=== PATIENT | male | born 1995 | race Two or more races ===

== ENCOUNTER 2021-04-22 11:55 | Emergency (ER) | payer SELFPAY ==
[~2021-04-22] VITALS: Ht 157.5 cm; Wt 68.0 kg
[2021-04-22] MEDS ORDERED: TETRACAINE 0.5% OPHTH SOLUTION 4ML BOTTLE. OS ONE (13:00)
[2021-04-22] MEDS ORDERED: FLUORESCEIN OPHTH TEST STRIP. OS ONE (13:00)
--- NOTE | 2021-04-22 13:43 | PHYS DOC ---
Past Medical History Past Surgical History: No Surgical History Smoking Status: Never Smoker Alcohol Use: None General Adult EDM: Chief Complaint: EYE PROBLEMS HPI: HPI: Patient is a 26 year old male who presents with began having left eye redness on this past Friday then started to have some pain so yesterday on Friday he went to [facility] and saw an eye doctor and they gave him prednisone drops. He states that the eye is now more painful and blurry to the point where he cannot read on the eye and he cannot tell colors. He states he supposed to follow-up with eye doctor tomorrow again. He does not have any photophobia. Rates his pain 9 out of 10. Review of Systems: Review of Systems: Constitutional: Denies fever or chills. [] Eyes: + change in visual acuity. + Eye pain, + eye redness [] HENT: Denies nasal congestion or sore throat. [] Respiratory: Denies cough or shortness of breath. [] Cardiovascular: Denies chest pain or edema. [] GI: Denies abdominal pain, nausea, vomiting, bloody stools or diarrhea. [] : Denies dysuria. [] Musculoskeletal: Denies back pain or joint pain. [] Integument: Denies rash. [] Neurologic: Denies headache, focal weakness or sensory changes. [] Endocrine: Denies polyuria or polydipsia. [] Lymphatic: Denies swollen glands. [] Psychiatric: Denies depression or anxiety. [] Heart Score: C/O Chest Pain: No Risk Factors: Risk Factors: DM, Current or recent (<one month) smoker, HTN, HLP, family history of CAD, obesity. Risk Scores: Score 0 - 3: 2.5% MACE over next 6 weeks - Discharge Home Score 4 - 6: 20.3% MACE over next 6 weeks - Admit for Clinical Observation Score 7 - 10: 72.7% MACE over next 6 weeks - Early Invasive Strategies Current Medications: Current Medications Medications (Trade) Dose Ordered Sig/Nelida Start Time Stop Time Status Last Admin Dose Admin Fluorescein Sodium (Ful-Valerie) 1 strip 1X ONCE 04/22/21 13:00 04/22/21 13:01 DC 04/22/21 13:09 1 STRIP Tetracaine HCl (Tetracaine) 1 drop 1X ONCE 04/22/21 13:00 04/22/21 13:01 DC 04/22/21 13:09 1 DROP Allergies: Allergies: Allergies Coded Allergies Type Severity Reaction Last Updated Verified No Known Drug Allergies 04/22/21 No Physical Exam: PE: Constitutional: Well developed, well nourished, no acute distress, non-toxic appearance. [] HENT: Normocephalic, atraumatic, bilateral external ears normal, oropharynx moist, no oral exudates, nose normal. [] Eyes: Not PERRLA, EOMI, right conjunctiva normal and left reddened, no discharge. Swelling to the left eye. Left eye pupil fixed at a 4 and not jimena ctive. [] Neck: Normal range of motion, no tenderness, supple, no stridor. [] Cardiovascular:Heart rate regular rhythm, no murmur [] Lungs & Thorax: Bilateral breath sounds clear to auscultation [] Abdomen: Bowel sounds normal, soft, no tenderness, no masses, no pulsatile masses. [] Skin: Warm, dry, no erythema, no rash. [] Back: No tenderness, no CVA tenderness. [] Extremities: No tenderness, no cyanosis, no clubbing, ROM intact, no edema. [] Neurologic: Alert and oriented X 3, normal motor function, normal sensory function, no focal deficits noted. [] Psychologic: Affect normal, judgement normal, mood normal. [] Current Patient Data: Vital Signs: Vital Signs Date Time Temp Pulse Resp B/P (MAP) Pulse Ox O2 Delivery O2 Flow Rate FiO2 04/22/21 12:25 98.4 68 16 128/82 97 Room Air 98.4 EKG: EKG: [] Radiology/Procedures: Radiology/Procedures: [] Course & Med Decision Making: Course & Med Decision Making Pertinent Labs and Imaging studies reviewed. (See chart for details) See HPI. Alert and oriented x4. Ambulatory steady gait. Speaks in full clear sentences. Skin pink warm dry. Vital signs within normal limits. No past medical history. Takes no medications daily. Eye Exam Visual accuity: Eye exam: Right pupil reactive to light, left pupil fixed at a 4 and not reactive to light, blurry, cannot see colors. extraocular muscles intact. No signs of ruptured globe. Sclera clear in right eye. Left sclera reddened with 1 with ciliary flush and hazy cornea with flat anterior chamber with no red reflex present. Cannot read words with left eye. Foreign body: No foreign bodies seen with examination or with lid flip exam. Reilly-pen: Cannot assess due to not having a Reilly-Pen Fluorescein test: No corneal abrasion. Anesthetic: Tetracaine I spoke to transfer team and their progress clerk Dr. Rios has accepted the patient to the ED. [] Dragon Disclaimer: Dragon Disclaimer: This electronic medical record was generated, in whole or in part, using a voice recognition dictation system. Departure Departure Impression: Primary Impression: Eye problem Disposition: 02 SHORT TERM [facility]OSPITAL ([facility]) Condition: STABLE Referrals: NO PCP (PCP) RIK TOMPKINS LEAD [employer] TENDER Apr 22, 2021 13:43
[2021-04-22] MEDS ORDERED: HYDROcodone/APAP 5/325MG 1 TAB TABLET PO ONE (13:45)
[2021-04-22 15:15] VITALS: BP 111/80
== END 2021-04-22 15:22 | disposition short-term general hospital (02) ==
LOC: ER 11:55
DX: H57.12 Ocular pain, left eye (principal)
CPT/HCPCS: 99285-25